=== PATIENT | female | born 1940 | race Caucasian/White ===

== ENCOUNTER 2019-10-08 05:58 | Day surgery (SDC) | payer OTHER, MEDICARE ==
[2019-10-02 12:15] VITALS: BMI 39.1
[2019-10-08] MEDS ORDERED: MIDAZOLAM HCL 2 MG/2 ML SINGLE DOSE VIAL ONE (06:53)
[2019-10-08] MEDS ORDERED: PROPOFOL 20 ML ONE ×2 (06:53)
[2019-10-08] MEDS ORDERED: ERYTHROMYCIN 0.5% OPHTHALMIC OINTMENT 3.5 GM TUBE ONE (07:28)
[2019-10-08] MEDS ORDERED: BUPIVACAINE HCL/PF 0.5% (5MG/ML) 10 ML VIAL ONE (07:29)
[2019-10-08] MEDS ORDERED: LIDOCAINE 1%/EPI 1:100000 (20 ML MULTI DOSE VIAL) ONE (07:29)
[2019-10-08] MEDS ORDERED: TETRACAINE 0.5% OPHTH SOLN 2 ML BOTTLE ONE ×2 (07:29→07:57)
[2019-10-08] MEDS ORDERED: ONDANSETRON 4 MG/2 ML VIAL ONE (08:02)
[2019-10-08] MEDS ORDERED: GLYCOPYRROLATE 0.2 MG/1 ML VIAL ONE (08:02)
[2019-10-08] MEDS ORDERED: DEXAMETHASONE SOD PHOSPHATE 4 MG/1 ML VIAL ONE (08:02)
[2019-10-08] MEDS ORDERED: ceFAZolin SODIUM 1 GM VIAL ONE (08:04)
[2019-10-08] MEDS ORDERED: METOPROLOL TARTRATE 5 MG/5 ML VIAL ONE (08:25)
[2019-10-08] MEDS ORDERED: ONDANSETRON 4 MG/2 ML VIAL IVPUSH PRN (08:36)
[2019-10-08] MEDS ORDERED: oxyCODONE HCL 5 MG TABLET PO PRN (08:36)
[2019-10-08] MEDS ORDERED: LACTATED RINGERS SOLUTION 1,000 ML IV SCH (08:45)
[2019-10-08 14:19] VITALS: BP 132/70; PULSE 82; TEMP 97.7
--- NOTE | 2019-10-08 20:50 | OP ---
DATE OF OPERATION: 10/08/2019 PREOPERATIVE DIAGNOSIS: Basal cell carcinoma right lower lid. POSTOPERATIVE DIAGNOSIS: Basal cell carcinoma right lower lid. PROCEDURE: Reconstruction repair of right lower lid with skin muscle advancement flaps. SURGEON: Mariah Hawthorne MD. ANESTHESIA: Local sedation. COMPLICATIONS: None. ESTIMATED BLOOD LOSS: 8 mL. OPERATIVE REPORT: Patient brought to the operating room, placed on the operating room table. Vital signs monitored by monitored by anesthesia. Tetracaine was placed on both eyes. Timeout was performed. Intravenous sedation was administered and 50:50 mixture of 2% Xylocaine, 1:100,000 epinephrine, 0.5% Marcaine, was injected subcutaneously across the lower lid for a total of 2 to 3 mL, massaged until good hemostasis. Patient was prepped and draped in usual sterile fashion exposing both eyes. It should be noted that just at the time of the injection, there was significant oozing of blood, therefore pressure was applied. Patient was prepped and draped in usual sterile fashion, exposing both eyes. Skin muscle flaps were developed nasally and temporally, and these were advanced in kind of an O to Z type fashion. The muscle layer was closed with interrupted 6-0 Vicryl sutures, and the skin was closed with interrupted 6-0 plain sutures, removing any _standing cutaneous____ deformity with minimal excision of skin. There was minimal tension on the eyelid with this closure. __Erythromycin ointment___ placed on the sutures, and the patient was taken to the recovery room after a small amount of pressure was applied to the eye for hemostasis in stable condition. MARIAH HAWTHORNE M.D. [id number] MTDD
== END 2019-10-08 11:10 | disposition home or self-care (01) ==
LOC: FASU 05:58
PROVIDERS: ATTEND Ophthalmology
PROC: 08SL0ZZ Reposition Right Extraocular Muscle, Open Approach (ICD-10-PCS; 2019-10-08)
PROC: 08BQ0ZZ Excision of Right Lower Eyelid, Open Approach (ICD-10-PCS; principal; 2019-10-08 08:11)
DX: C44.1022 Unspecified malignant neoplasm of skin of right lower eyelid, including canthus (principal)
CPT/HCPCS: 82962; 94760